=== PATIENT | female | born 1990 | race Caucasian/White ===

== ENCOUNTER 2021-10-19 17:09 | Emergency (ER) | payer SELFPAY ==
--- NOTE | ~2021-10-19 | XR_ITS ---
EXAMINATION: XR KNEE, LEFT CLINICAL INFORMATION: Pain post fall COMPARISON: None TECHNIQUE: Four views of the left knee. FINDINGS: No significant knee joint effusion. Bones are normal anatomic alignment with no acute fracture or dislocation seen. No bony degenerative or destructive changes. No radiopaque foreign body or soft tissue gas. XR/XR knee LT 4V IMPRESSION: No acute bony abnormalities.
[2021-10-19 18:09] VITALS: BP 122/66; PULSE 82; RESP 18; TEMP 36.7; O2SAT 100; BMI 16.9
== END 2021-10-19 20:28 | disposition left against medical advice (07) ==
PROVIDERS: Emergency Provider Emergency Medicine
DX: S89.92XA Unspecified injury of left lower leg, initial encounter (principal); W01.0XXA Fall on same level from slipping, tripping and stumbling without subsequent striking against object, initial encounter; Y93.89 Activity, other specified; Y92.59 Other trade areas as the place of occurrence of the external cause; Y99.0 Civilian activity done for income or pay
CPT/HCPCS: 73564; 99281; 99283

== ENCOUNTER 2021-10-20 07:38 | Emergency (ER) | payer OTHER, SELFPAY ==
[2021-10-20 07:45] VITALS: BP 120/65; PULSE 79; RESP 16; TEMP 36.6; O2SAT 100; BMI 16.9
--- NOTE | 2021-10-20 08:00 | ED_ITS ---
HPI - Extremity Injury (Lower) General Chief Complaint: Extremity Injury, Lower Stated Complaint: L knee Pain from work inj Time Seen by Provider: 10/20/21 07:59 Source: patient Mode of arrival: ambulatory Limitations: no limitations History of Present Illness MD complaint: knee injury and leg injury Onset (ago): day(s) (1) Injury: Left: knee Type of Injury: blunt Place: work Severity: moderate Relieving factors: NSAID and immobilization Exacerbating factors: weight bearing and movement Context: fall and direct blow Associated symptoms: swelling Other symptoms: none Treatments prior to arrival: bandage and NSAIDS Related Data Allergies Allergy/AdvReac Type Severity Reaction Status Date / Time latex [LATEX] Allergy Unknown HIVES Unverified 11/08/19 18:56 latex Allergy Unknown rash, hives Uncoded 11/06/18 00:00 onion Allergy Unknown rash, hives Uncoded 11/06/18 00:00 Review of Systems Review of Systems: Constitutional : No Fever, No Chills Cardiovascular : No Chest Pain, No SOB Respiratory : No Cough, No Dyspnea Gastrointestinal : No Nausea, No Vomiting, No Diarrhea, No abdominal Pain Genitourinary : No Dysuria, No Hematuria Musculoskeletal : positive joint pain, No Myalgias, No Joint Swelling Skin : No Skin lacerations, No rash Neuro : No Weakness, No Numbness PMFSH Past Medical History Attestation statement: The following information was validated with the patient. Medical History No pertinent past medical history Social History Social History (Updated 10/20/21 @ 08:16 by Tiffany Sultana DO) Patient Tobacco Use Status: Never used Tobacco Advance Directives: No Advance Directives Information Provided: Yes Physical Exam Vital Signs: Vital Signs: Last Vital Signs Temp 97.8 F 10/20/21 07:45 Pulse 79 10/20/21 07:45 Resp 16 10/20/21 07:45 BP 120/65 10/20/21 07:45 Pulse Ox 100 10/20/21 07:45 O2 Del Method 10/20/21 07:45 BMI result Body Mass Index 16.9 Appearance: Alert. Oriented X3. No acute distress. Eyes: Pupils equal, round and reactive to light. ENT: Pharynx normal. Neck: Normal inspection. Neck supple. CVS: Pulses normal. Respiratory: No respiratory distress. Abdomen: Soft and nontender. Skin: Skin warm and dry. Normal skin color. Normal skin turgor. Extremities: No lower extremity edema. R posterior calf contusion noted small - distal NV intact, L lateral leg and knee contusions noted, lig intact no effusi on noted full ROM, distal NV intact Neuro: Oriented X 3. No motor deficit. No sensory deficit. MDM - Extremity Injury (Lower) MDM Narrative Medical decision making narrative: 31 yo female here with L leg contusions and strain post accident at work - xrays negative from yesterday NV intact. Soft tissue injury will wrap leg and instruct RICE. Work note. Discharge Plan Discharge Clinical Impression: Knee strain, Contusion Instructions: Bone Bruise (ED) Additional Instructions: return to ED for any worsening symptoms or concerns wear rafia wrap for comfort, continue to ice, elevate and use motrin FINDINGS: No significant knee joint effusion. Bones are normal anatomic alignment with no acute fracture or dislocation seen. No bony degenerative or destructive changes. No radiopaque foreign body or soft tissue gas.? XR/XR knee LT 4V IMPRESSION: No acute bony abnormalities. Stand Alone Forms: Work/School Release
--- NOTE | 2021-10-20 08:37 | PC.NURSE ---
PT EVALUATED BY PROVIDER +CMS. [facility] APPLIED PLAN IS FOR DC HOME. PT AGREEABLE TO PLAN
== END 2021-10-20 08:46 | disposition home or self-care (01) ==
PROVIDERS: Emergency Provider Emergency Medicine; PCP Internal Medicine
DX: S86.912A Strain of unspecified muscle(s) and tendon(s) at lower leg level, left leg, initial encounter (principal); S80.02XA Contusion of left knee, initial encounter; S80.12XA Contusion of left lower leg, initial encounter; S80.11XA Contusion of right lower leg, initial encounter; W01.0XXA Fall on same level from slipping, tripping and stumbling without subsequent striking against object, initial encounter; Y93.E9 Activity, other interior property and clothing maintenance; Y92.9 Unspecified place or not applicable; Y99.0 Civilian activity done for income or pay
CPT/HCPCS: 99282

== ENCOUNTER 2023-09-12 00:26 | Inpatient (IN) | payer OTHER, SELFPAY ==
[2023-09-12 00:31] VITALS: BP 130/88; PULSE 101; O2SAT 97; BMI 15.9
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
[2023-09-12 00:44] VITALS: BP 100/70; PULSE 76; RESP 14; TEMP 36.6; O2SAT 95
[2023-09-12 00:59] LABS: MANUAL DIFF FLAG NO
[2023-09-12 01:01] LABS: Basophils Absolute Auto 0.1 X10*3/uL (0.0-0.2); Basophils Percent Auto 0.4 % (0-2); Eosinophils Absolute Auto 0.1 X10*3/uL (0.0-0.4); Eosinophils Percent Auto 0.6 % (0-4); Hematocrit 40.4 % (37.0-47.0); Imm Gran Abs Auto 0.06 X10*3/uL (0.00-0.03); Imm Gran Pct Auto 0.4 % (0.0-0.4); Lymphocytes Absolute Auto 1.8 X10*3/uL (1.2-4.9); Lymphocytes Percent Auto 12.8 % (20-40); Mean Corpuscular HGB Conc 34.7 g/dl (31.0-35.0); Mean Corpuscular Hemoglobin 30.4 pg (27.0-33.0); Mean Corpuscular Volume 87.8 fL (80.0-98.0); Mean Platelet Volume 11.8 fL (9.4-12.3); Monocytes Absolute Auto 0.9 X10*3/uL (0.1-1.2); Monocytes Percent Auto 6.5 % (2-11); Neutrophils Absolute Auto 11.1 x10*3/uL (2.0-8.3); Neutrophils Percent Auto 79.3 % (45-73); Platelet Count 231 X10*3/uL (160-400); Red Cell Distribution Width 12.9 % (11.0-16.0); White Blood Count 14.1 X10*3/uL (4.8-10.8)
[2023-09-12 01:03] LABS: Appearance Urine Turbid; Color Urine Red; Glucose Urine UA Negative (Negative); Leukocyte Esterase Urine Moderate (2+) (Negative); Nitrite Urine Positive (Negative); Specific Gravity - Urine >= 1.030 (1.005-1.025); UMIC TRIGGER UACC YES; Urine Blood Moderate (2+) (Negative); Urine Ketones Negative (Negative); Urine Protein 100 (2+) mg/dL (Neg-Trace)
[2023-09-12 01:04] LABS: UPreg QC Valid YES; Urine Pregnancy NEGATIVE (NEGATIVE)
[2023-09-12 01:14] LABS: Bacteria Urine 4+ (None Seen); RBC Urine >20 /HPF (0-2); UACC Culture Trigger YES
[2023-09-12 01:21] LABS: Amphetamine Screen Urine Not Detected (Not Detect); Barbiturates, Urine Not Detected (Not Detect); Benzodiazepines Screen Urine Not Detected (Not Detect); Buprenorphine Scr Not Detected (Not Detect); Cannabinoid Screen Urine POSITIVE (Not Detect); Cocaine Screen Urine Not Detected (Not Detect); Fentanyl, urine Not Detected (Not Detect); Methadone Screen, Urine Not Detected (Not Detect); Opiate Screen Urine Not Detected (Not Detect); Oxycodone Screen Urine Not Detected (Not Detect); Phencyclidine Screen Urine Not Detected (Not Detect)
[2023-09-12 01:27] LABS: Alanine Aminotransferase 11 U/L (0-31); Alkaline Phosphatase 40 U/L (39-117); Anion Gap 16 (12-20); Aspartate Amino Transferase 17 U/L (5-31); Bilirubin Total 0.7 mg/dL (0.0-1.0); Blood Urea Nitrogen 21 mg/dL (9-16); Calcium 10.3 mg/dL (8.4-10.2); Carbon Dioxide 23 mmol/L (22-29); Chloride 108 mmol/L (96-108); Creatinine Clr Calc Pharmacy 54.2; Estimated Glomerular Filt Rate > 60; Ethanol < 10 mg/dL; Glucose Random 144 mg/dL (60-115); Potassium 3.5 mmol/L (3.3-5.1); Sodium 143 mmol/L (135-145); Total Protein 7.6 g/dL (6.5-8.0)
[2023-09-12] MEDS: Nitrofurantoin Monohyd/M-Cryst 100 MG CAPSULE PO ×2 (04:27→21:04)
--- NOTE | 2023-09-12 07:33 | PC.NURSE ---
Assumed care of patient at 0645, patient appears to be sleeping this am, respirations even and unlabored, no apparent distress noted. Continue plan of care for CARE team evaluation
[2023-09-12 09:20] VITALS: BP 114/61; PULSE 67; RESP 16; TEMP 36.9; O2SAT 100
[2023-09-12 13:12] VITALS: BP 115/61; PULSE 75; RESP 16; TEMP 36.8; O2SAT 98
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
[2023-09-12 14:15] VITALS: BMI 16.0
[2023-09-12] MEDS: Acetaminophen 325 MG TABLET 650 MG PO (15:40)
[2023-09-12] MEDS: hydrOXYzine HCL 25 MG TABLET PO ×2 (15:57→21:05)
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
[2023-09-12 20:00] VITALS: BP 100/60; PULSE 88; RESP 16; TEMP 36.4; O2SAT 99
[2023-09-12] MEDS: Mirtazapine 7.5 MG TABLET PO (21:12)
[2023-09-13 08:00] VITALS: BP 123/65; PULSE 79; RESP 16; TEMP 36.6; O2SAT 98
[2023-09-13] MEDS: Nitrofurantoin Monohyd/M-Cryst 100 MG CAPSULE PO ×2 (08:34→22:14)
[2023-09-13 09:17] LABS: Estimated Average Glucose 97 mg/dL
[2023-09-13 09:36] LABS: Cholesterol 119 mg/dL (<200); HDL Cholesterol 38 mg/dL (>40); LDL Cholesterol Calculated 69 mg/dL (<100); Triglycerides 62 mg/dL (<150)
[2023-09-13 09:43] LABS: Free T4 (Free Thyroxine) 1.19 ng/dL (0.71-1.85); Thyroid Stimulating Hormone 0.85 uIU/mL (0.32-4.0)
[2023-09-13 11:10] LABS: Vitamin B12 605 pg/mL (200-900)
[2023-09-13] MEDS: hydrOXYzine HCL 25 MG TABLET PO (13:56)
--- NOTE | 2023-09-13 15:03 | HO.PSYCHPN ---
Subjective Subjective Date of Service: 09/13/23 Reason For Visit: Mental health crisis Interim History: endorses insomnia, nightmares, intrusive thoughts of traumas. agreeable to increase remeron to 15 mg QHS and start prazosin 1 mg QHS tonight. per staff, slept about 7 hours. Mental Status Exam Mental Status Exam Narrative: adequately dressed and groomed in [facility]. cooperative. no PMA/PMR. speech nml rate, incr amount, decr latency, nml loudness and prosody. thoughts linear and logical. affect flexible, normo-intense, non-labile. mood improved. no SI/HI/AVH expressed. Diagnostics Vital Signs (24Hr): Vital Signs - 24 hr 09/12/23 20:00 09/13/23 08:00 Temperature 97.5 F 97.9 F Pulse Rate 88 79 Respiratory Rate 16 16 Blood Pressure 100/60 123/65 Pulse Oximetry 99 98 Oxygen Delivery Method Room Air Room Air BMI result Body Mass Index 16.0 Labs 09/12/23 00:47 09/12/23 00:47 Labs: Laboratory Results - last 48 hr 09/12/23 09/12/23 09/13/23 00:47 00:48 08:43 WBC 14.1 H RBC 4.60 Hgb 14.0 Hct 40.4 MCV 87.8 MCH 30.4 MCHC 34.7 RDW 12.9 Plt Count 231 MPV 11.8 Immature Gran % (Auto) 0.4 Neut % (Auto) 79.3 H Lymph % (Auto) 12.8 L [place] % (Auto) 6.5 Eos % (Auto) 0.6 Baso % (Auto) 0.4 Lymph # (Auto) 1.8 [place] # (Auto) 0.9 Eos # (Auto) 0.1 Baso # (Auto) 0.1 Abs Immat Gran (auto) 0.06 H Absolute Neuts (auto) 11.1 H Absolute Nucleated RBC 0.000 Nucleated RBC % (auto) 0.0 Sodium 143 Potassium 3.5 Chloride 108 Carbon Dioxide 23 Anion Gap 16 BUN 21 H Creatinine 0.95 Estim Creat Clear Calc 54.2 Estimated GFR > 60 Random Glucose 144 H Estimat Average Glucose 97 Hemoglobin A1c % 5.0 Calcium 10.3 H Total Bilirubin 0.7 AST 17 ALT 11 Alkaline Phosphatase 40 Total Protein 7.6 Albumin 5.0 Triglycerides 62 Cholesterol 119 LDL Cholesterol, Calc 69 HDL Cholesterol 38 L Vitamin B12 605 Folate 11.0 TSH 0.85 Free T4 1.19 Urine Color Red A Urine Appearance Turbid Urine pH 5.0 Ur Specific [place] >= 1.030 H Urine Protein 100 (2+) H Urine Glucose (UA) Negative Urine Ketones Negative Urine Blood Moderate (2+) H Urine Nitrite Positive H Ur Leukocyte Esterase Moderate (2+) H Urine RBC >20 H Urine WBC 11-20 H Ur Squamous Epith Cells 11-20 Urine Bacteria 4+ Hyaline Casts 11-20 Urine Test NEGATIVE Urine Opiates Screen Not Detected Ur Buprenorphine Scrn Not Detected Ur Oxycodone Screen Not Detected Urine Methadone Screen Not Detected Urine Fentanyl Screen Not Detected Ur Barbiturates Screen Not Detected Ur Phencyclidine Scrn Not Detected Ur Amphetamines Screen Not Detected U Benzodiazepines Scrn Not Detected Urine Cocaine Screen Not Detected U Marijuana (THC) Screen POSITIVE H Ethyl Alcohol < 10 Medications Medications Current Medications Acetaminophen (Acetaminophen 325 Mg Tablet) 650 mg PO Q6H PRN PRN Reason: Headache/Pain Mild Scale (1-3) Last Admin: 09/12/23 15:40 Dose: 650 mg Al Hydroxide/Mg Hydroxide (Magnesium Hydrox/Alum Hydrox 30 Ml Oral.Susp) 30 ml PO Q6H PRN PRN Reason: Heartburn/Nausea Hydroxyzine HCl (Hydroxyzine Hcl 25 Mg Tablet) 25 mg PO Q6H PRN PRN Reason: Anxiety Last Admin: 09/13/23 13:56 Dose: 25 mg Magnesium Hydroxide (Milk Of Magnesia 30 Ml Oral.Susp) 30 ml PO DAILY PRN PRN Reason: Constipation Mirtazapine (Mirtazapine 7.5 Mg Tablet) 7.5 mg PO BEDTIME PRN PRN Reason: insomnia Mirtazapine (Mirtazapine 15 Mg Tablet) 15 mg PO BEDTIME NICHELLE Nicotine Polacrilex (Nicotine Polacrilex 2 Mg Gum) 4 mg BUCCAL Q2H PRN PRN Reason: Nicotine Cravings Nitrofurantoin Macrocrystals (Nitrofurantoin Monohyd/M-Cryst 100 Mg Capsule) 100 mg PO BID NICHELLE Last Admin: 09/13/23 08:34 Dose: 100 mg Prazosin HCl (Prazosin Hcl 1 Mg Capsule) 1 mg PO BEDTIME NICHELEL; Protocol Allergies Allergies Allergy/AdvReac Type Severity Reaction Status Date / Time latex [LATEX] Allergy Unknown HIVES Verified 09/12/23 00:40 latex Allergy Unknown rash, hives Uncoded 09/12/23 00:40 onion Allergy Unknown rash, hives Uncoded 09/12/23 00:40 Assessment & Plan Assessment & Plan (1) Acute UTI: Status: Acute Code(s): N39.0 - Urinary tract infection, site not specified (2) Adjustment disorder: Qualifiers: Adjustment disorder type: with depressed mood Qualified Code(s): F43.21 - Adjustment disorder with depressed mood Status: Acute Code(s): F43.20 - Adjustment disorder, unspecified (3) Anxiety disorder: Status: Acute Code(s): F41.9 - Anxiety disorder, unspecified Plan 09/11: start remeron 7.5 MR x1 at HS for insomnia and anxiety. further assessment for PTSD. refer for therapy and meds at discharge. 09/12: severe PTSD Sx. increase HS remeron to 15 mg, start prazosin 1 mg QHS. Reason for continued inpatient stay Substantial Risk for: harm to self, harm to others, inability to function and rapid decompensation Time Spent With Patient Time: Total time managing care of this patient today __25__ minutes.
[2023-09-13 20:30] VITALS: BP 125/90; PULSE 85; RESP 16; TEMP 36.9; O2SAT 98
[2023-09-13 22:14] VITALS: BP 109/73
[2023-09-13] MEDS: Mirtazapine 15 MG TABLET PO (22:14)
[2023-09-13] MEDS: Prazosin HCL 1 MG CAPSULE PO (22:14)
[2023-09-14 08:00] VITALS: BP 96/58; PULSE 87; RESP 16; TEMP 37; O2SAT 99
[2023-09-14] MEDS: Nitrofurantoin Monohyd/M-Cryst 100 MG CAPSULE PO ×2 (08:30→22:32)
[2023-09-14] MEDS: hydrOXYzine HCL 25 MG TABLET PO (08:35)
--- NOTE | 2023-09-14 15:09 | P.PNPSI_ITS ---
Subjective Subjective Date of Service: 09/14/23 Reason For Visit: Mental health crisis Interim History: pleasant, calm, cooperative. reports she feels better today, having awoken happy, in a good mood, light. slept better without nightmares last night, although did awaken in the night drenched in sweat. will hold steady on current regimen, however. per staff, anx/dep. glad for the help here. +grps, YOLIE. slept 7 hours. DC tuesday. Mental Status Exam Mental Status Exam Narrative: adequately dressed and groomed in [facility]. cooperative. no PMA/PMR. speech nml rate, incr amount, decr latency, nml loudness and prosody. thoughts linear and logical. affect flexible, normo-intense, non-labile. mood improved. no SI/HI/AVH expressed. Diagnostics Vital Signs (24Hr): Vital Signs - 24 hr 09/13/23 20:30 09/13/23 22:14 09/14/23 08:00 Temperature 98.4 F 98.6 F Pulse Rate 85 87 Respiratory Rate 16 16 Blood Pressure 125/90 H 109/73 96/58 L Pulse Oximetry 98 99 Oxygen Delivery Method Room Air Room Air BMI result Body Mass Index 16.0 Labs 09/12/23 00:47 09/12/23 00:47 Labs: Laboratory Results - last 48 hr 09/13/23 08:43 Estimat Average Glucose 97 Hemoglobin A1c % 5.0 Triglycerides 62 Cholesterol 119 LDL Cholesterol, Calc 69 HDL Cholesterol 38 L Vitamin B12 605 Folate 11.0 TSH 0.85 Free T4 1.19 Medications Medications Current Medications Acetaminophen (Acetaminophen 325 Mg Tablet) 650 mg PO Q6H PRN PRN Reason: Headache/Pain Mild Scale (1-3) Last Admin: 09/12/23 15:40 Dose: 650 mg Al Hydroxide/Mg Hydroxide (Magnesium Hydrox/Alum Hydrox 30 Ml Oral.Susp) 30 ml PO Q6H PRN PRN Reason: Heartburn/Nausea Hydroxyzine HCl (Hydroxyzine Hcl 25 Mg Tablet) 25 mg PO Q6H PRN PRN Reason: Anxiety Last Admin: 09/14/23 08:35 Dose: 25 mg Magnesium Hydroxide (Milk Of Magnesia 30 Ml Oral.Susp) 30 ml PO DAILY PRN PRN Reason: Constipation Mirtazapine (Mirtazapine 7.5 Mg Tablet) 7.5 mg PO BEDTIME PRN PRN Reason: insomnia Mirtazapine (Mirtazapine 15 Mg Tablet) 15 mg PO BEDTIME NICHELLE Last Admin: 09/13/23 22:14 Dose: 15 mg Nicotine Polacrilex (Nicotine Polacrilex 2 Mg Gum) 4 mg BUCCAL Q2H PRN PRN Reason: Nicotine Cravings Nitrofurantoin Macrocrystals (Nitrofurantoin Monohyd/M-Cryst 100 Mg Capsule) 100 mg PO BID NICHELLE Last Admin: 09/14/23 08:30 Dose: 100 mg Prazosin HCl (Prazosin Hcl 1 Mg Capsule) 1 mg PO BEDTIME NICHELLE; Protocol Last Admin: 09/13/23 22:14 Dose: 1 mg Allergies Allergies Allergy/AdvReac Type Severity Reaction Status Date / Time latex [LATEX] Allergy Unknown HIVES Verified 09/12/23 00:40 latex Allergy Unknown rash, hives Uncoded 09/12/23 00:40 onion Allergy Unknown rash, hives Uncoded 09/12/23 00:40 Assessment & Plan Assessment & Plan (1) Acute UTI: Status: Acute Code(s): N39.0 - Urinary tract infection, site not specified (2) Adjustment disorder: Qualifiers: Adjustment disorder type: with depressed mood Qualified Code(s): F43.21 - Adjustment disorder with depressed mood Status: Acute Code(s): F43.20 - Adjustment disorder, unspecified (3) Anxiety disorder: Status: Acute Code(s): F41.9 - Anxiety disorder, unspecified Plan 09/11: start remeron 7.5 MR x1 at HS for insomnia and anxiety. further assessment for PTSD. refer for therapy and meds at discharge. 09/12: severe PTSD Sx. increase HS remeron to 15 mg, start prazosin 1 mg QHS. 09/13: slept well, no nightmares (but did drench in sweat). mood improved. planning for discharge tuesday. continue current mgmt. Reason for continued inpatient stay Substantial Risk for: harm to self, harm to others and rapid decompensation Time Spent With Patient Time: Total time managing care of this patient today __25__ minutes.
[2023-09-14 20:54] VITALS: BP 118/64; PULSE 80; RESP 18; TEMP 37.1; O2SAT 100
[2023-09-14 22:26] VITALS: BP 113/73; PULSE 86
[2023-09-14] MEDS: Mirtazapine 7.5 MG TABLET PO ×2 (22:31→23:57)
[2023-09-14] MEDS: Mirtazapine 15 MG TABLET PO (22:31)
[2023-09-14] MEDS: Prazosin HCL 1 MG CAPSULE PO (22:32)
[2023-09-15 07:00] VITALS: BMI 16.1
[2023-09-15 08:00] VITALS: BP 92/55; PULSE 78; RESP 18; TEMP 37.4; O2SAT 98
[2023-09-15] MEDS: Nitrofurantoin Monohyd/M-Cryst 100 MG CAPSULE PO ×2 (08:44→20:20)
[2023-09-15] MEDS: hydrOXYzine HCL 25 MG TABLET PO (12:48)
[2023-09-15 16:17] LABS: Appearance Urine Clear; Color Urine Yellow; Glucose Urine UA Negative (Negative); Leukocyte Esterase Urine Negative (Negative); Nitrite Urine Negative (Negative); UMIC TRIGGER UACC YES; Urine Blood Moderate (2+) (Negative); Urine Ketones Negative (Negative); Urine Protein Negative (Neg-Trace)
[2023-09-15 16:37] LABS: Bacteria Urine Trace (None Seen); Hyaline Casts Urine 0-2 /LPF (0-2); RBC Urine 0-2 /HPF (0-2); WBC Urine 0-5 /HPF (0-5)
--- NOTE | 2023-09-15 18:10 | P.PNPSI_ITS ---
Subjective Subjective Date of Service: 09/15/23 Reason For Visit: Mental health crisis Interim History: calm, cooperative, pleasant. planning for discharge tuesday morning. reports that once she fell asleep, she slept well. no nightmares. per staff, dep/anx low. taking meds, attending groups. poor sleep, used remeron PRN x 2. slept about 6 hours. BP 92/55 this morning. Mental Status Exam Mental Status Exam Narrative: adequately dressed and groomed in [facility]. cooperative. no PMA/PMR. speech nml rate, incr amount, decr latency, nml loudness and prosody. thoughts linear and logical. affect flexible, normo-intense, non-labile. mood i feel really good. no SI/HI/AVH expressed. Diagnostics Vital Signs (24Hr): Vital Signs - 24 hr 09/14/23 20:54 09/14/23 22:26 09/15/23 08:00 Temperature 98.7 F 99.3 F Pulse Rate 80 86 78 Respiratory Rate 18 18 Blood Pressure 118/64 113/73 92/55 L Pulse Oximetry 100 98 Oxygen Delivery Method Room Air Room Air BMI result Body Mass Index 16.1 Labs 09/12/23 00:47 09/12/23 00:47 Labs: Laboratory Results - last 48 hr 09/15/23 13:57 Urine Color Yellow Urine Appearance Clear Urine pH 6.0 Ur Specific [place] 1.020 Urine Protein Negative Urine Glucose (UA) Negative Urine Ketones Negative Urine Blood Moderate (2+) H Urine Nitrite Negative Ur Leukocyte Esterase Negative Urine RBC 0-2 Urine WBC 0-5 Ur Squamous Epith Cells 3-5 Urine Bacteria Trace Hyaline Casts 0-2 Medications Medications Current Medications Acetaminophen (Acetaminophen 325 Mg Tablet) 650 mg PO Q6H PRN PRN Reason: Headache/Pain Mild Scale (1-3) Last Admin: 09/12/23 15:40 Dose: 650 mg Al Hydroxide/Mg Hydroxide (Magnesium Hydrox/Alum Hydrox 30 Ml Oral.Susp) 30 ml PO Q6H PRN PRN Reason: Heartburn/Nausea Hydroxyzine HCl (Hydroxyzine Hcl 25 Mg Tablet) 25 mg PO Q6H PRN PRN Reason: Anxiety Last Admin: 09/15/23 12:48 Dose: 25 mg Magnesium Hydroxide (Milk Of Magnesia 30 Ml Oral.Susp) 30 ml PO DAILY PRN PRN Reason: Constipation Mirtazapine (Mirtazapine 7.5 Mg Tablet) 7.5 mg PO BEDTIME PRN PRN Reason: insomnia Last Admin: 09/14/23 23:57 Dose: 7.5 mg Mirtazapine (Mirtazapine 15 Mg Tablet) 15 mg PO BEDTIME NICHELLE Last Admin: 09/14/23 22:31 Dose: 15 mg Nicotine Polacrilex (Nicotine Polacrilex 2 Mg Gum) 4 mg BUCCAL Q2H PRN PRN Reason: Nicotine Cravings Nitrofurantoin Macrocrystals (Nitrofurantoin Monohyd/M-Cryst 100 Mg Capsule) 100 mg PO BID NICHELLE Last Admin: 09/15/23 08:44 Dose: 100 mg Prazosin HCl (Prazosin Hcl 1 Mg Capsule) 1 mg PO BEDTIME NICHELLE; Protocol Last Admin: 09/14/23 22:32 Dose: 1 mg Allergies Allergies Allergy/AdvReac Type Severity Reaction Status Date / Time latex [LATEX] Allergy Unknown HIVES Verified 09/12/23 00:40 latex Allergy Unknown rash, hives Uncoded 09/12/23 00:40 onion Allergy Unknown rash, hives Uncoded 09/12/23 00:40 Assessment & Plan Assessment & Plan (1) Acute UTI: Status: Acute Code(s): N39.0 - Urinary tract infection, site not specified (2) Adjustment disorder: Qualifiers: Adjustment disorder type: with depressed mood Qualified Code(s): F43.21 - Adjustment disorder with depressed mood Status: Acute Code(s): F43.20 - Adjustment disorder, unspecified (3) Anxiety disorder: Status: Acute Code(s): F41.9 - Anxiety disorder, unspecified Plan 09/11: start remeron 7.5 MR x1 at HS for insomnia and anxiety. further assessment for PTSD. refer for therapy and meds at discharge. 09/12: severe PTSD Sx. increase HS remeron to 15 mg, start prazosin 1 mg QHS. 09/13: slept well, no nightmares (but did drench in sweat). mood improved. planning for discharge tuesday. continue current mgmt. 09/14: slept adequately, no nightmares. UA clean. planning for tuesday DC. Reason for continued inpatient stay Substantial Risk for: rapid decompensation Time Spent With Patient Time: Total time managing care of this patient today __25__ minutes.
[2023-09-15 20:00] VITALS: BP 101/80; PULSE 99; RESP 16; TEMP 37.2; O2SAT 98
[2023-09-15 20:20] VITALS: BP 101/80
[2023-09-15] MEDS: Prazosin HCL 1 MG CAPSULE PO (20:20)
[2023-09-15] MEDS: Mirtazapine 15 MG TABLET PO (20:20)
[2023-09-15] MEDS: Mirtazapine 7.5 MG TABLET PO (23:48)
[2023-09-16 07:45] VITALS: BP 93/59; PULSE 64; RESP 14; TEMP 36.6; O2SAT 98
[2023-09-16] MEDS: Nitrofurantoin Monohyd/M-Cryst 100 MG CAPSULE PO ×2 (09:06→22:57)
[2023-09-16] MEDS: hydrOXYzine HCL 25 MG TABLET PO ×3 (09:13→23:09)
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
[2023-09-16 22:55] VITALS: PULSE 73; RESP 16; TEMP 36.6; O2SAT 99
[2023-09-16 22:57] VITALS: BP 109/76
[2023-09-16] MEDS: Prazosin HCL 1 MG CAPSULE PO (22:57)
[2023-09-16] MEDS: Mirtazapine 15 MG TABLET PO (22:59)
--- NOTE | 2023-09-17 07:40 | P.PNPSI_ITS ---
Subjective Subjective Date of Service: 09/17/23 Reason For Visit: Mental health crisis Subjective Notes: Conditional Voluntary Interim History: Patient was seen and discussed in rounds today. Records and plans were reviewed. She is being discharged today. She states that she is doing well and is ready for discharge. She still has 2-1/2 days left on her antibiotics for her UTI which will be given to her at discharge to complete the course. Discharge orders to be placed and prescriptions have been taken care of. Review of Systems Review of Systems Yes all other systems are reviewed and are negative Mental Status Exam Mental Status Exam Narrative: In today's visit she is alert, oriented and pleasant. Normal speech. Good eye contact. Affect is appropriate and varied. No SI. No cognitive deficits. No signs of psychosis. Diagnostics Vital Signs (24Hr): Vital Signs - 24 hr 09/16/23 07:45 09/16/23 22:55 09/16/23 22:57 Temperature 97.8 F 97.8 F Pulse Rate 64 73 Respiratory Rate 14 16 Blood Pressure 93/59 L 109/76 Pulse Oximetry 98 99 Oxygen Delivery Method Room Air Room Air BMI result Body Mass Index 16.1 Labs 09/12/23 00:47 09/12/23 00:47 Labs: Laboratory Results - last 48 hr 09/15/23 13:57 Urine Color Yellow Urine Appearance Clear Urine pH 6.0 Ur Specific [place] 1.020 Urine Protein Negative Urine Glucose (UA) Negative Urine Ketones Negative Urine Blood Moderate (2+) H Urine Nitrite Negative Ur Leukocyte Esterase Negative Urine RBC 0-2 Urine WBC 0-5 Ur Squamous Epith Cells 3-5 Urine Bacteria Trace Hyaline Casts 0-2 Medications Medications Current Medications Acetaminophen (Acetaminophen 325 Mg Tablet) 650 mg PO Q6H PRN PRN Reason: Headache/Pain Mild Scale (1-3) Last Admin: 09/12/23 15:40 Dose: 650 mg Al Hydroxide/Mg Hydroxide (Magnesium Hydrox/Alum Hydrox 30 Ml Oral.Susp) 30 ml PO Q6H PRN PRN Reason: Heartburn/Nausea Hydroxyzine HCl (Hydroxyzine Hcl 25 Mg Tablet) 25 mg PO Q6H PRN PRN Reason: Anxiety Last Admin: 09/16/23 23:09 Dose: 25 mg Magnesium Hydroxide (Milk Of Magnesia 30 Ml Oral.Susp) 30 ml PO DAILY PRN PRN Reason: Constipation Mirtazapine (Mirtazapine 7.5 Mg Tablet) 7.5 mg PO BEDTIME PRN PRN Reason: insomnia Last Admin: 09/15/23 23:48 Dose: 7.5 mg Mirtazapine (Mirtazapine 15 Mg Tablet) 15 mg PO BEDTIME NICHELLE Last Admin: 09/16/23 22:59 Dose: 15 mg Nicotine Polacrilex (Nicotine Polacrilex 2 Mg Gum) 4 mg BUCCAL Q2H PRN PRN Reason: Nicotine Cravings Nitrofurantoin Macrocrystals (Nitrofurantoin Monohyd/M-Cryst 100 Mg Capsule) 100 mg PO BID NICHELLE Last Admin: 09/16/23 22:57 Dose: 100 mg Prazosin HCl (Prazosin Hcl 1 Mg Capsule) 1 mg PO BEDTIME NICHELLE; Protocol Last Admin: 09/16/23 22:57 Dose: 1 mg Allergies Allergies Allergy/AdvReac Type Severity Reaction Status Date / Time latex [LATEX] Allergy Unknown HIVES Verified 09/12/23 00:40 latex Allergy Unknown rash, hives Uncoded 09/12/23 00:40 onion Allergy Unknown rash, hives Uncoded 09/12/23 00:40 Assessment & Plan Assessment & Plan (1) Acute UTI: Status: Acute Code(s): N39.0 - Urinary tract infection, site not specified (2) Adjustment disorder: Qualifiers: Adjustment disorder type: with depressed mood Qualified Code(s): F43.21 - Adjustment disorder with depressed mood Status: Acute Code(s): F43.20 - Adjustment disorder, unspecified (3) Anxiety disorder: Status: Acute Code(s): F41.9 - Anxiety disorder, unspecified Plan 09/11: start remeron 7.5 MR x1 at HS for insomnia and anxiety. further assessment for PTSD. refer for therapy and meds at discharge. 09/12: severe PTSD Sx. increase HS remeron to 15 mg, start prazosin 1 mg QHS. 09/13: slept well, no nightmares (but did drench in sweat). mood improved. planning for discharge tuesday. continue current mgmt. 09/14: slept adequately, no nightmares. UA clean. planning for tuesday DC. 09/16 discharge today Reason for continued inpatient stay Substantial Risk for: stable for discharge Time Spent With Patient Time: Total time managing care of this patient today ____ minutes.
[2023-09-17] MEDS: Nitrofurantoin Monohyd/M-Cryst 100 MG CAPSULE PO (08:23)
[2023-09-17] MEDS: hydrOXYzine HCL 25 MG TABLET PO (08:47)
--- NOTE | 2023-09-17 09:12 | PC.NURSE ---
09/17/23 Pt upon D/C left with 5 tabs of 100mg of Macrobid verfied via pharmacy and Dr. Cabrera.
== END 2023-09-17 09:30 | disposition home or self-care (01) | DRG 881 ==
LOC: HO.ED 03:44 → HO.PADLT16 12:12
PROVIDERS: Admitting Provider Psychiatry & Neurology Psychiatry; Emergency Provider Emergency Medicine; Visit Provider Psychiatry & Neurology Psychiatry
DX: F43.21 Adjustment disorder with depressed mood (principal); R45.851 Suicidal ideations; N39.0 Urinary tract infection, site not specified; F43.12 Post-traumatic stress disorder, chronic; F17.210 Nicotine dependence, cigarettes, uncomplicated; Z71.6 Tobacco abuse counseling; Z79.899 Other long term (current) drug therapy
CPT/HCPCS: 36415; 80053; 80061; 80307; 81001; 81025; 82607; 82746; 83036; 84439; 84443; 85025; 87086; 99285; S9485

== ENCOUNTER → 2023-09-12 11:56 | Outpatient (BNV) | payer OTHER, SELFPAY | PROVIDERS: Admitting Provider Psychiatry & Neurology Psychiatry; Emergency Provider Emergency Medicine; Visit Provider Psychiatry & Neurology Psychiatry | DX: F43.21 Adjustment disorder with depressed mood (principal); F41.9 Anxiety disorder, unspecified; N39.0 Urinary tract infection, site not specified | CPT/HCPCS: 90792; 99231; 99232; 99239; 99499 ==